=== PATIENT | female | born 1960 | race Caucasian/White ===

== ENCOUNTER 2023-01-25 01:22 | Inpatient (IN) | payer OTHER ==
[2023-01-25] VITALS (14 sets, daily range): BP systolic 127–161; BP diastolic 82–94; PULSE 60–94; RESP 17–20; O2SAT 94–97
[~2023-01-25] VITALS: Ht 170.2 cm; Wt 60.3 kg
[2023-01-25 02:00] LABS: BASOPHILS # (AUTO) 0.08 K/uL (0.00-0.20); BASOPHILS % (AUTO) 0.8 % (0.0-5.0); EOSINOPHILS # (AUTO) 1.08 K/uL (0.00-0.70); EOSINOPHILS % (AUTO) 10.9 % (0.0-8.0); HEMATOCRIT 41.1 % (36-48); IMMATURE GRANULOCYTE ABSOLUTE 0.03 K/uL (0-1); LYMPHOCYTES # (AUTO) 1.5 K/uL (1.0-4.8); LYMPHOCYTES % (AUTO) 15.3 % (21.0-51.0); MEAN CORPUSCULAR HEMOGLOBIN 33.6 pg (27.0-33.0); MEAN CORPUSCULAR HGB CONC 33.6 g/dL (32.0-36.0); MONOCYTES # (AUTO) 0.9 K/uL (0.1-1.0); MONOCYTES % (AUTO) 8.6 % (3.0-13.0); NEUTROPHILS # (AUTO) 6.4 K/uL (1.8-7.7); NEUTROPHILS % (AUTO) 64.1 % (40.0-77.0); PLATELET COUNT (AUTO) 212 K/uL (130-400); RED BLOOD CELL COUNT(AUTO) 4.11 MIL/uL (4.00-5.50); RED CELL DISTRIBUTION WIDTH 13.9 % (11.0-15.5); WHITE BLOOD COUNT (AUTO) 9.9 K/uL (4.8-10.8)
[2023-01-25 02:16] LABS: CREATININE 0.6 mg/dL (0.5-1.5); POTASSIUM 4.2 mmol/L (3.5-5.1)
[2023-01-25 02:21] LABS: ALBUMIN 3.8 g/dL (3.5-5.0); BILIRUBIN,TOTAL 1.2 mg/dL (0.2-1.0); TOTAL PROTEIN, SERUM 7.1 g/dL (6.0-8.3)
[2023-01-25 02:24] LABS: RAPID GROUP A STREP negative (NEGATIVE)
[2023-01-25 02:29] LABS: SARS-CoV-2, RNA, NAAT NEGATIVE SARS CoV-2 (NEGATIVE)
[2023-01-25 02:33] LABS: INFLUENZA TYPE A Negative For Type A (NEGATIVE); INFLUENZA TYPE B Negative For Type B (NEGATIVE)
[2023-01-25] MEDS: CEFTRIAXONE 1G VIAL IVPB ONE ×2 (03:51→04:28)
[2023-01-25] MEDS ORDERED: AZITHROMYCIN 250 MG TABLET PO ONE (04:00)
[2023-01-25] MEDS ORDERED: IPRATROPIUM/ALBUTEROL SULFATE 3 ML SOLUTION IH ONE (04:00)
[2023-01-25] MEDS ORDERED: SOLU-MEDROL 125MG VIAL IVP ONE (04:00)
[2023-01-25] MEDS ORDERED: POTASSIUM CHLORIDE 20MEQ/100ML 100 ML IV PRN (05:00)
[2023-01-25] MEDS ORDERED: ONDANSETRON 4MG INJ IV PRN (05:00)
[2023-01-25] MEDS ORDERED: POTASSIUM CHLORIDE 10% ELIXIR 20 MEQ/15 ML UDCUP PO PRN (05:00)
[2023-01-25] MEDS ORDERED: MAGNESIUM 2GM PREMIX 50ML 50 ML IV PRN (05:00)
[2023-01-25] MEDS ORDERED: KCL 20 MEQ ERTAB PO PRN (05:00)
[2023-01-25] MEDS ORDERED: ACETAMINOPHEN 325 MG TAB PO PRN ×2 (05:00)
[2023-01-25] MEDS: LEVOFLOXACIN 500 MG/D5W 100 ML 100 ML IV SCH (05:22)
[2023-01-25] MEDS: IPRATROPIUM/ALBUTEROL SULFATE 3 ML SOLUTION IH SCH ×5 (06:46→22:32)
[2023-01-25 07:40] LABS: BASOPHILS # (AUTO) 0.03 K/uL (0.00-0.20); BASOPHILS % (AUTO) 0.5 % (0.0-5.0); EOSINOPHILS # (AUTO) 0.13 K/uL (0.00-0.70); EOSINOPHILS % (AUTO) 2.2 % (0.0-8.0); HEMATOCRIT 40.8 % (36-48); IMMATURE GRANULOCYTE ABSOLUTE 0.02 K/uL (0-1); LYMPHOCYTES # (AUTO) 0.5 K/uL (1.0-4.8); LYMPHOCYTES % (AUTO) 8.3 % (21.0-51.0); MEAN CORPUSCULAR HGB CONC 34.1 g/dL (32.0-36.0); MEAN CORPUSCULAR VOLUME 99.8 fL (79-99); MONOCYTES # (AUTO) 0.1 K/uL (0.1-1.0); MONOCYTES % (AUTO) 1.3 % (3.0-13.0); NEUTROPHILS # (AUTO) 5.3 K/uL (1.8-7.7); NEUTROPHILS % (AUTO) 87.4 % (40.0-77.0); PLATELET COUNT (AUTO) 211 K/uL (130-400); RED BLOOD CELL COUNT(AUTO) 4.09 MIL/uL (4.00-5.50); RED CELL DISTRIBUTION WIDTH 13.7 % (11.0-15.5)
[2023-01-25 07:57] LABS: ALBUMIN 3.7 g/dL (3.5-5.0); BILIRUBIN,TOTAL 1.4 mg/dL (0.2-1.0); CREATININE 0.6 mg/dL (0.5-1.5); MAGNESIUM 1.7 mg/dL (1.80-2.40); POTASSIUM 4.4 mmol/L (3.5-5.1); TOTAL PROTEIN, SERUM 7.2 g/dL (6.0-8.3)
[2023-01-25] MEDS: ENOXAPARIN SODIUM 30 MG/0.3 ML SQ SCH (10:11)
[2023-01-25] MEDS: SOLU-MEDROL 40MG VIAL IVP SCH ×2 (10:11→19:56)
[2023-01-25] MEDS: FAMOTIDINE 20MG TAB PO SCH ×2 (10:12→19:56)
[2023-01-26] VITALS (15 sets, daily range): BP systolic 117–151; BP diastolic 80–92; PULSE 58–107; RESP 16–21; O2SAT 95–98
[2023-01-26] MEDS ORDERED: ALPRAZOLAM 0.5 MG TABLET PO ONE (01:30)
[2023-01-26] MEDS ORDERED: METOPROLOL TARTRATE 1 MG/ML 5ML VIAL IV ONE (01:30)
[2023-01-26] MEDS: IPRATROPIUM/ALBUTEROL SULFATE 3 ML SOLUTION IH SCH ×6 (02:15→23:55)
[2023-01-26] MEDS: LEVOFLOXACIN 500 MG/D5W 100 ML 100 ML IV SCH (03:23)
[2023-01-26 04:38] LABS: HEMATOCRIT 35.1 % (36-48); IMMATURE GRANULOCYTE ABSOLUTE 0.05 K/uL (0-1); LYMPHOCYTES # (AUTO) 0.5 K/uL (1.0-4.8); MEAN CORPUSCULAR HGB CONC 34.2 g/dL (32.0-36.0); MEAN CORPUSCULAR VOLUME 99.4 fL (79-99); MONOCYTES # (AUTO) 0.6 K/uL (0.1-1.0); MONOCYTES % (AUTO) 8.4 % (3.0-13.0); NEUTROPHILS # (AUTO) 6.3 K/uL (1.8-7.7); NEUTROPHILS % (AUTO) 83.9 % (40.0-77.0); PLATELET COUNT (AUTO) 179 K/uL (130-400); RED BLOOD CELL COUNT(AUTO) 3.53 MIL/uL (4.00-5.50); RED CELL DISTRIBUTION WIDTH 13.9 % (11.0-15.5); WHITE BLOOD COUNT (AUTO) 7.5 K/uL (4.8-10.8)
[2023-01-26 04:51] LABS: ALBUMIN 3.4 g/dL (3.5-5.0); BILIRUBIN,TOTAL 0.5 mg/dL (0.2-1.0); CREATININE 0.6 mg/dL (0.5-1.5); MAGNESIUM 2.7 mg/dL (1.80-2.40); POTASSIUM 4.2 mmol/L (3.5-5.1); TOTAL PROTEIN, SERUM 6.5 g/dL (6.0-8.3)
[2023-01-26] MEDS: FAMOTIDINE 20MG TAB PO SCH ×2 (08:31→20:07)
[2023-01-26] MEDS: SOLU-MEDROL 40MG VIAL IVP SCH ×3 (08:31→20:07)
[2023-01-26] MEDS: ENOXAPARIN SODIUM 30 MG/0.3 ML SQ SCH (08:33)
[2023-01-26] MEDS ORDERED: METH-386 PO (15:16)
[2023-01-26] MEDS ORDERED: LOSA100T59 PO (15:16)
[2023-01-26] MEDS ORDERED: SERT-439 PO (15:16)
[2023-01-26] MEDS ORDERED: PROP40TA7 PO (15:16)
[2023-01-26] MEDS ORDERED: ROSU5TAB12 PO (15:16)
[2023-01-26] MEDS ORDERED: OMEP20CA12 PO (15:16)
[2023-01-27] VITALS (9 sets, daily range): BP systolic 131–149; BP diastolic 77–98; PULSE 95–128; RESP 16–20; O2SAT 95–98
[2023-01-27] MEDS: IPRATROPIUM/ALBUTEROL SULFATE 3 ML SOLUTION IH SCH ×3 (02:17→10:15)
[2023-01-27] MEDS: LEVOFLOXACIN 500 MG/D5W 100 ML 100 ML IV SCH (02:25)
[2023-01-27] MEDS: SOLU-MEDROL 40MG VIAL IVP SCH ×2 (04:24→11:00)
[2023-01-27] MEDS: FAMOTIDINE 20MG TAB PO SCH (10:42)
[2023-01-27] MEDS: ENOXAPARIN SODIUM 30 MG/0.3 ML SQ SCH (10:45)
== END 2023-01-27 12:40 | disposition home or self-care (01) | DRG 189 ==
LOC: EDH 01:22 → EDHIP 01:23 → UNDOADMIN 04:42 → EDHIP 04:42 → UNDOADMIN 04:43 → EDHIP 04:43 → 4BH 06:26
PROVIDERS: ADMIT Hospitalist; ATTEND Hospitalist
DX: J96.21 Acute and chronic respiratory failure with hypoxia (principal); J44.1 Chronic obstructive pulmonary disease with (acute) exacerbation; F41.9 Anxiety disorder, unspecified; E78.5 Hyperlipidemia, unspecified; F17.210 Nicotine dependence, cigarettes, uncomplicated; I11.9 Hypertensive heart disease without heart failure; Z82.49 Family history of ischemic heart disease and other diseases of the circulatory system; Z88.0 Allergy status to penicillin
CPT/HCPCS: 36415; 71045; 80053; 82306; 82948; 83605; 83735; 84207; 84484; 85025; 87635; 87804; 87880; 93005; 94640; 94664; 94760; C9803; G0378; J0696; J1650; J1956; J2920; J2930; J3475; J3490